=== PATIENT | female | born 1940 | race Two or more races ===

== ENCOUNTER 2022-10-02 03:22 | Emergency (ER) | payer OTHER ==
[~2022-10-02] VITALS: Ht 162.6 cm; Wt 65.3 kg
[2022-10-02] MEDS ORDERED: HORIZANT300 MG PO (03:41)
[2022-10-02] MEDS ORDERED: SINGULAIR10 MG PO (03:41)
== END 2022-10-02 07:54 | disposition home or self-care (01) ==
LOC: ER 03:22
DX: R10.32 Left lower quadrant pain (principal); R11.0 Nausea; Z88.8 Allergy status to other drugs, medicaments and biological substances; N20.1 Calculus of ureter; K80.20 Calculus of gallbladder without cholecystitis without obstruction; K57.30 Diverticulosis of large intestine without perforation or abscess without bleeding